=== PATIENT | female | born 1965 | race Caucasian/White ===

== ENCOUNTER 2016-12-01 16:33 | Emergency (ER) | payer BC ==
[~2016-12-01] VITALS: Ht 167.6 cm; Wt 81.6 kg
--- NOTE | ~2016-12-01 | CR142 ---
[facility] A Service of [facility] RADIOLOGY TEXT RESULTS PATIENT: DYAN TURPIN LOCATION: SED : 65 UNIT #: [id number] AGE: [address]: ROBBIE BARKER SEX: F ORDER DR: [id number] [address] [id number] E MR#: [id number] #: [id number] NAME: DYAN TURPIN : 1965 SEX: F STUDY DATE/TIME: 12/01/2016 17:34 UNIT: SED ROOM: STUDY DESCRIPTION: CR Hand Min 3 Views Rt Attending Physician: Robbie Barker Ordering Physician: Robbie Barker Primary Care Physician: Magi Primary Care Physician MEDICAL IMAGING REPORT This report is preliminary unless electronic signature is present. EXAM Right hand 3 views HISTORY Hand pain today. Thumb pain. No injury. FINDINGS 3 views of the right hand demonstrate normal bone alignment. Mild degenerative changes in the wrist, primarily at the first CMC joint. No fracture or dislocation. No opaque soft tissue foreign body. Old healed fractures distal phalanges, fourth and fifth digits. IMPRESSION No acute findings. Dictated by... Arnold Partida M.D. THIS IS AN ELECTRONICALLY VERIFIED REPORT Arnold Partida M.D. at 12/02/2016 2:27 PM DOMINGO/rosa maria TD: 12/02/2016 12:38 JOB #: [id number] MEDICAL IMAGING REPORT Page 1 of 1
[2016-12-01] MEDS ORDERED: NO MEDICATIONS (16:48)
== END 2016-12-01 18:34 | disposition home or self-care (01) ==
LOC: SED 16:33
DX: M79.641 Pain in right hand (principal)
CPT/HCPCS: 29260; 73130; 99283